=== PATIENT | male | born 1975 | race African-American/Black ===

== ENCOUNTER 2022-07-08 08:43 | Inpatient (IN) | payer MEDICARE, MEDICAID ==
[~2022-07-08] VITALS: Ht 167.6 cm; Wt 31.3 kg
[2022-07-08] MEDS ORDERED: IOHEXOL-350 100 ML BOTTLE ONE (09:45)
[2022-07-08 09:59] LABS: MEAN CORPUSCULAR VOLUME 61.6 fL (80.0-94.0); MEAN PLATELET VOLUME 8.8 fl (7.4-10.4); PLATELET 119 x1000/uL (130-400); RED BLOOD CELL COUNT 2.88 mill/uL (4.7-6.1); RED CELL DISTRIBUTION WIDTH 25.7 % (11.6-14.6)
[2022-07-08 10:03] LABS: HEMATOCRIT. 17.7 % (42.0-52.0); HEMOGLOBIN. 4.9 g/dL (14.0-18.0)
[2022-07-08 10:04] LABS: CHLORIDE 104 mEq/L (98-107)
[2022-07-08 10:12] LABS: ETHANOL BLOOD < 10 mg/dL
[2022-07-08 10:30] LABS: PLATELET ESTIMATE DECREASED
[2022-07-08] MEDS ORDERED: DEXTROSE 50% WATER 50ML SYRINGE IV ONE (11:15)
[2022-07-08] MEDS ORDERED: ACETAMINOPHEN 325MG TABLET PO PRN (12:30)
[2022-07-08] MEDS ORDERED: MAGNESIUM/ALUMINUM HYDROXIDE/SIMETHICONE 30ML UDC PO PRN (12:30)
[2022-07-08] MEDS: DEXT 5%/0.45% NACL 1000ML 1,000 ML IV SCH (12:30)
[2022-07-08] MEDS ORDERED: GUAIFENESIN 200MG/10ML SUGAR FREE UDC PO PRN (12:30)
[2022-07-08] MEDS ORDERED: TRAMADOL 50MG TABLET PO PRN (12:30)
[2022-07-08] MEDS ORDERED: DOCUSATE SODIUM 100MG CAPSULE PO PRN (12:30)
[2022-07-08] MEDS ORDERED: ONDANSETRON HCL 4MG/2ML INJ IV PRN (12:30)
[2022-07-08] MEDS ORDERED: NALOXONE HCL 0.4MG/ML VIAL IV PRN (12:45)
[2022-07-08 13:11] LABS: TOTAL IRON BINDING CAPACITY 306 ug/dL (250-450)
[2022-07-08 14:51] LABS: INR 1.5; PROTHROMBIN TIME 15.7 sec (9.6-11.0)
[2022-07-08 18:00] LABS: HEMATOCRIT 26.9 % (42.0-52.0); HEMOGLOBIN 8.2 g/dL (14.0-18.0)
[2022-07-08] MEDS ORDERED: FILGRASTIM-TBO 300 MCG/0.5 ML SYRINGE SQ SCH (21:00)
[2022-07-09 02:50] VITALS: BP 101/69
[2022-07-09] MEDS: DEXT 5%/0.45% NACL 1000ML 1,000 ML IV SCH ×2 (05:26→12:59)
[2022-07-09] MEDS: BLOOD SUGAR DIAGNOSTIC STRIP TEST SCH ×4 (05:47→21:00)
[2022-07-09 05:59] VITALS: BP 101/69
[2022-07-09] MEDS ORDERED: DEXTROSE 50% WATER 50ML SYRINGE IV ONE (06:20)
[2022-07-09] MEDS ORDERED: DEXTROSE 50% WATER 50ML SYRINGE IV PRN (06:30)
[2022-07-09 09:37] LABS: HEMATOCRIT. 27.4 % (42.0-52.0); HEMOGLOBIN. 8.4 g/dL (14.0-18.0); MEAN CORPUSCULAR HEMOGLOBIN 21.5 pg (28.0-32.0); MEAN CORPUSCULAR VOLUME 69.9 fL (80.0-94.0); MEAN PLATELET VOLUME 8.4 fl (7.4-10.4); PLATELET 88 x1000/uL (130-400); RED BLOOD CELL COUNT 3.92 mill/uL (4.7-6.1)
[2022-07-09 09:49] LABS: CHLORIDE 106 mEq/L (98-107)
[2022-07-09 10:12] LABS: HDL CHOLESTEROL 94 mg/dL (40-59)
[2022-07-09 10:14] LABS: LDL CHOLESTEROL 9 mg/dL (5-100)
[2022-07-09 10:43] LABS: PLATELET ESTIMATE DECREASED
[2022-07-09 12:00] VITALS: BP 91/59
[2022-07-09 16:00] VITALS: BP 90/46
[2022-07-09 20:00] VITALS: BP 92/61
[2022-07-09 22:08] VITALS: BP 92/51
[2022-07-10 04:00] VITALS: BP 104/59
[2022-07-10] MEDS: DEXT 5%/0.45% NACL 1000ML 1,000 ML IV SCH (04:08)
[2022-07-10 10:51] VITALS: BP 90/58
== END 2022-07-10 15:35 | disposition home health service (06) | DRG 640 ==
LOC: ER 08:43 → EDBEDREQ 10:04 → EDBEDREQTM 10:04 → EDBEDREQSVC 10:04 → MICUSO 11:56 → EDBEDREQTM 11:59 → EDBEDREQ 11:59 → 7WST 07-09 02:40
PROVIDERS: ADMIT Hospitalist; ATTEND Hospitalist
PROC: 30233N1 Transfusion of Nonautologous Red Blood Cells into Peripheral Vein, Percutaneous Approach (ICD-10-PCS; principal; 2022-07-08)
DX: E16.2 Hypoglycemia, unspecified (principal); G93.41 Metabolic encephalopathy; D61.818 Other pancytopenia; F84.0 Autistic disorder; E44.1 Mild protein-calorie malnutrition; Z68.1 Body mass index [BMI] 19.9 or less, adult; D63.8 Anemia in other chronic diseases classified elsewhere; R74.01 Elevation of levels of liver transaminase levels
CPT/HCPCS: 36415; 70496; 70498; 71045; 80053; 80061; 80320; 82962; 83540; 83550; 84484; 85014; 85018; 85025; 86850; 86900; 86920; 93005; 93970; 97162; 99291; J1442; P9016; Q9967; G0480